=== PATIENT | female | born 1965 | race Caucasian/White ===

== ENCOUNTER 2022-09-22 14:24 | Emergency (ER) | payer OTHER ==
[2022-09-22] MEDS ORDERED: Acetaminophen 500 MG TAB ONE (15:02)
== END 2022-09-22 15:34 | disposition home or self-care (01) ==
LOC: NAV ERS 14:24
DX: S93.401A Sprain of unspecified ligament of right ankle, initial encounter (principal); I11.0 Hypertensive heart disease with heart failure; I50.9 Heart failure, unspecified; E11.9 Type 2 diabetes mellitus without complications; F17.210 Nicotine dependence, cigarettes, uncomplicated; W01.0XXA Fall on same level from slipping, tripping and stumbling without subsequent striking against object, initial encounter; Z86.73 Personal history of transient ischemic attack (TIA), and cerebral infarction without residual deficits; Z79.4 Long term (current) use of insulin; Z79.899 Other long term (current) drug therapy